=== PATIENT | male | born 1990 | race Hispanic/Latino ===

== ENCOUNTER 2025-05-15 13:56 | Outpatient (CLI) | payer BC | END 2025-05-15 13:57 | disposition home or self-care (01) | LOC: CSHMRI 13:56 | PROVIDERS: ATTEND Orthopaedic Surgery | DX: M47.26 Other spondylosis with radiculopathy, lumbar region (principal); M54.42 Lumbago with sciatica, left side; M48.061 Spinal stenosis, lumbar region without neurogenic claudication | CPT/HCPCS: 72148; 72195 ==